=== PATIENT | male | born 1965 | race Caucasian/White ===

== ENCOUNTER 2018-01-13 13:09 | Emergency (ER) | payer MEDICARE, MEDICAID, SELFPAY ==
[2018-01-13] VITALS (41 sets, daily range): BP systolic 43–197; BP diastolic 21–154; PULSE 40–217; RESP 2–44; TEMP 36.5; O2SAT 89–100
[2018-01-13] MEDS: Atropine 1 MG/10 ML SYRINGE IVP (13:30)
[2018-01-13] MEDS: Albuterol 2.5 MG/3 ML INH SOLN VIAL UPD (13:34)
[2018-01-13] MEDS: Midazolam 2 MG/2 ML VIAL IVP ×2 (13:36→14:00)
--- NOTE | 2018-01-13 13:37 | DI.RAD_ITS ---
SYMPTOM/DIAGNOSIS: BRADYCARDIAC, HYPOTENSIVE PORTABLE AP CHEST: Allowing for suboptimal inspiratory effort, there are no gross pulmonary infiltrates. The heart is enlarged. A double bore catheter appears to end in the distal superior vena cava.
[2018-01-13] MEDS: Sodium Bicarbonate 50 MEQ/50 ML SYR IVP (13:38)
--- NOTE | 2018-01-13 13:52 | W.ED.GENAD ---
Discharge Plan Disposition Patient Disposition: LISA OCHOA ([facility]) Condition: Critical Discharge Details Chief Complaint: CVA/TIA Clinical Impression: Bradycardia, Hypotension, Hyperkalemia, Left bundle branch block, ESRD on dialysis Primary Care Provider: Unknown,Unknown ED Provider: Krystin Ludwig Home Meds and New Rx's Prescriptions: No Action atorvastatin 80 mg Tablet 80 mg PO .QHS RF: 0 ipratropium-albuterol 0.5 mg-3 mg(2.5 mg base)/3 mL Solution For Nebulization PRNRF: 0 metoprolol tartrate 100 mg Tablet 100 mg PO BID RF: 0 clonazepam 0.5 mg Tablet 0.5 mg PO BID PRNRF: 0 oxycodone 15 mg Tablet 15 mg PO QID RF: 0 levetiracetam [Keppra] 250 mg Tablet 250 mg PO BID RF: 0 furosemide [Lasix] 80 mg Tablet 80 mg PO .QHS RF: 0 pantoprazole 40 mg Tablet,Delayed Release (Dr/Ec) 40 mg PO DAILY RF: 0 calcitriol 0.5 mcg Capsule 0.5 mcg PO BID RF: 0 warfarin 2 mg Tablet 2 mg PO DAILY RF: 0 nitroglycerin 0.4 mg Tablet, Sublingual 0.4 mg Sublingual PRNRF: 0 B complex-vitamin C-folic acid 0.8 mg Tablet 1 tab PO DAILY RF: 0 albuterol sulfate [Proventil HFA] 90 mcg/actuation Hfa Aerosol Inhaler 2 puff Inhalation PRNRF: 0 diltiazem HCl 180 mg Capsule,Ext.Rel 24h Degradable 180 mg PO DAILY RF: 0 cinacalcet [Sensipar] 30 mg Tablet 30 mg PO .SUPPER RF: 0 mirtazapine 7.5 mg Tablet 7.5 mg PO .QHS RF: 0 cholecalciferol (vitamin D3) 2,000 unit Capsule 2,000 unit PO DAILY RF: 0 colchicine 0.6 mg Capsule 0.5 tab PO BID RF: 0 Discharge Data Discharge Date/Time-TO BE ENTERED AT DEPARTURE: 01/13/18 15:50 Medical Decision Making 1315 -- 52yo M w/ a h/o ESRD on dialysis, CHF, HTN who presents for vomiting, shivering, diaphoresis since this morning. Heart rate on arrival 30s. BP unobtainable. O2 sat low 90s on RA. RR 30s. Pt appears drowsy but arousable, able to answer questions, airway intact. EKG notes a rate of 37, LBBB, QRS 226, peaked T waves. Review of old ekg 10/2017 from [facility] notes Afib/flutter; LBBB appears new. Heart rate subsequently decreased to the 20s. Systolic blood pressure 50s-60s. Patient was given 2 doses of 0.5 mg atropine. Patient was then started on transcutaneous pacing. Patient was given albuterol, an amp of bicarb, calcium IV. Patient began to moan once transcutaneous pacing started and was given 2 mg of Versed. Heart rate 70s and paced. Blood pressure improved to 140s/100s. Respiratory rate 20s. [facility] called for stat transfer for cardiology but there were no beds available. Call placed to [facility] which was discussed with and patient and he would rather transfer to [facility] in [place]. Discussed with [facility] and there are no beds available there. All [facility] again and spoke with cardiology Dr. Cabello who accepts patient for transfer. Will fly by helicopter. Would like epi infusion at 5 mcg/min which can be given peripherally. Agrees with plan for Versed boluses as needed for sedation while pacing. Can consider ketamine or IV Haldol. Labs reviewed and note a white blood cell count of 14, sodium 125, potassium 9.5, bicarb 19, anion gap 17, creatinine 10.73, glucose 448, calcium 6.2. Troponin negative. ABG notes a pH of 7.35, bicarb of 18, PCO2 33, PO2 248. 10 units of insulin and 10 mg of albuterol given. Patient was given a second dose of Versed to help with sedation after he started moaning again. He appeared to be more tachypneic into the 40s. He was sat up and was less responsive and considered intubation, however he became more alert and was answering questions appropriately. This may be likely from versed and it's prolonged effects due to reduced renal clearance. Would rather hold on intubation if pt continues to protect his airway as his presentation is more metabolic rather than respiratory, and ventilator may be not able to match what he can do on his own to compensate for the acidosis. 1530 -- [facility] helicopter here. Dr. Cabello updated on patient's status and plan. Patient awake and alert and complaining of pain from pacer pads from portable monitor. HPI General Mode of arrival: wheelchair. Date/Time Provider Initiated Documentation: 01/13/18 13:19. Limitations to Documentation: altered mental status and physical limitation (weakness). Information obtained by: patient and family. HPI Narrative: Patient is a 52-year-old male who presents for vomiting, shivering and diaphoresis this morning. He has history of end-stage renal disease on dialysis Friday, and Friday. Last received dialysis as scheduled on Friday. Patient missed dialysis this morning due to the above-mentioned symptoms. He denies any chest pain or shortness of breath. is unsure of patient's medications. She states she can send a list. Past medical history: End-stage renal disease on dialysis, CHF, COPD, CVA, hypertension, SC, pancreatitis Surgical history: Fistulas right upper extremity, neck surgery Social history: Smokes tobacco, occasional alcohol, denies drugs Medications: Unknown at time of initial arrival, see list per nurse. Allergies: See list PCP: [place], also seen at [facility]. Related Data Home Medications Medication Instructions Recorded Confirmed B complex-vitamin C-folic acid 1 tab PO DAILY 01/13/18 01/13/18 albuterol sulfate [Proventil HFA] 2 puff INHALATION PRN 01/13/18 atorvastatin 80 mg PO .QHS 01/13/18 01/13/18 calcitriol 0.5 mcg PO BID 01/13/18 01/13/18 cholecalciferol (vitamin D3) 2,000 unit PO DAILY 01/13/18 01/13/18 cinacalcet [Sensipar] 30 mg PO .SUPPER 01/13/18 01/13/18 clonazepam 0.5 mg PO BID PRN 01/13/18 01/13/18 colchicine 0.5 tab PO BID 01/13/18 01/13/18 diltiazem HCl 180 mg PO DAILY 01/13/18 01/13/18 furosemide [Lasix] 80 mg PO .QHS 01/13/18 01/13/18 ipratropium-albuterol PRN 01/13/18 levetiracetam [Keppra] 250 mg PO BID 01/13/18 01/13/18 metoprolol tartrate 100 mg PO BID 01/13/18 01/13/18 mirtazapine 7.5 mg PO .QHS 01/13/18 01/13/18 nitroglycerin 0.4 mg SUBLINGUAL PRN 01/13/18 oxycodone 15 mg PO QID 01/13/18 01/13/18 pantoprazole 40 mg PO DAILY 01/13/18 01/13/18 warfarin 2 mg PO DAILY 01/13/18 01/13/18 Allergies Allergy/AdvReac Type Severity Reaction Status Date / Time clonidine [From Catapres] Allergy Intermediate Hives Unverified 01/13/18 14:22 lisinopril Allergy Intermediate Hives Unverified 01/13/18 14:22 chlorhexidine Allergy Unknown Unverified 01/13/18 14:22 alcohol skin cleanser Allergy Intermediate Uncoded 01/13/18 14:23 General Stated Complaint: CVA/TIA NELLY: 2 Review of Systems Review of Systems All systems reviewed & are unremarkable except as noted in HPI and below PFSH Social History Smoking/Tobacco Use Status: Current every day Exam Const General: cooperative, frail appearing and ill appearing Orientation: other (Drowsy but arousable) [facility] Head: normal to inspection Ears: hearing grossly normal bilaterally and external ears normal General nose exam: external nose normal Face and sinus: normal facial exam Mouth: oral mucosae normal Eyes General: appearance normal, both eyes and all related structures Eyelids: eyelids normal Pupils: PERRL EOM: EOM intact bilaterally Neck Neck: normal visual inspection Lymphatic: no lymphadenopathy noted Chest Chest: normal inspection of the chest Resp Effort & Inspection: normal respiratory effort and able to speak in complete sentences Auscultation: clear to auscultation bilaterally Cardio Rate: bradycardic Rhythm: abnormal rhythm (Wide QRS,afib, LBBB) GI Inspection: normal to inspection and distended Palpation: soft, not firm, no guarding, no hepatosplenomegaly, no masses and nontender Auscultation: normal bowel sounds Skin General skin exam: no rashes or lesions noted Neuro General: other (drowsy) Cognition: normal cognition Speech: speech normal Gait: normal gait Motor: muscle tone normal throughout Sensory Exam: no sensory deficits noted Extrem General: normal to inspection, full ROM, normal capillary refill and no edema Psych Appearance: grossly normal Mental Status: mental status grossly normal Speech and Movement: speech and movement normal Affect: normal affect Thought Process: normal Course Laboratory Tests Range/Units 01/13/18 01/13/18 01/13/18 13:30 13:30 13:30 WBC (4.4-10.8) k/cumm 14.30 H RBC (4.50-6.00) m/cumm 4.40 L Hgb (13.5-17.5) g/dL 13.0 L Hct (40.0-50.0) % 39.3 L MCV (80-95) fL 89.3 MCH (27.0-33.0) pg 29.5 MCHC (32.0-36.0) g/dL 33.1 RDW (11.8-14.1) % 17.8 H Plt Count (130-400) x1000/uL 301 MPV (8.0-11.0) fL 10.1 Immature Gran % 0.0 Neutrophils % 91.0 Lymphocytes % 5.0 Monocytes % 4.0 Eosinophils % 0.0 Basophils % 0.0 Absolute Neutrophils (1.2-6.7) k/cumm 13.01 H Absolute Lymphocytes (1.2-3.4) k/cumm 0.72 L Absolute Monocytes (0.11-0.7) k/cumm 0.57 Absolute Eosinophils (0.0-0.7) k/cumm 0.00 Absolute Basophils (0.0-0.2) k/cumm 0.00 Differential Comment Manual differential RBC Morphology Normal PT (9.3-10.8) sec 12.1 H INR (1.0-3.5) 1.2 APTT (21.0-31.4) sec 29.1 Sample Site pCO2 (34-47) mmHg pO2 (83-108) mmHg O2 Saturation (94-98) % ABG pH (7.35-7.45) ABG HCO3 (22-28) mmol/L ABG Total CO2 ABG Base Excess (-3-3) mmol/L FiO2 % Sodium (136-145) mmol/L 125 L Potassium (3.5-5.1) mmol/L 9.5 H* Chloride (98-107) mmol/L 89 L Carbon Dioxide (21.0-32.0) mmol/L 19.0 L Anion Gap (3-11) mmol/L 17.0 H BUN (7-18) mg/dL 100 H* Creatinine (0.70-1.30) mg/dL 10.73 H* Estimated GFR/1.73 m2 (mL/min/1.73m2) 5.07 Glucose (70-100) mg/dL 448 H Calcium (8.5-10.1) mg/dL 6.2 L* Magnesium (1.8-2.4) mg/dL 2.0 Total Bilirubin (0.2-1.0) mg/dL 0.5 Conjugated Bilirubin (0.00-0.20) mg/dL 0.13 AST (15-37) U/L 20 ALT (12-78) U/L 15 Alkaline Phosphatase (46-116) U/L 399 H Troponin I (0.00-0.06) ng/mL < 0.02 Total Protein (6.4-8.2) g/dL 7.8 Albumin (3.4-5.0) g/dL 3.8 Lipase (73-393) U/L 252 Range/Units 01/13/18 13:55 WBC (4.4-10.8) k/cumm RBC (4.50-6.00) m/cumm Hgb (13.5-17.5) g/dL Hct (40.0-50.0) % MCV (80-95) fL MCH (27.0-33.0) pg MCHC (32.0-36.0) g/dL RDW (11.8-14.1) % Plt Count (130-400) x1000/uL MPV (8.0-11.0) fL Immature Gran % Neutrophils % Lymphocytes % Monocytes % Eosinophils % Basophils % Absolute Neutrophils (1.2-6.7) k/cumm Absolute Lymphocytes (1.2-3.4) k/cumm Absolute Monocytes (0.11-0.7) k/cumm Absolute Eosinophils (0.0-0.7) k/cumm Absolute Basophils (0.0-0.2) k/cumm Differential Comment RBC Morphology PT (9.3-10.8) sec INR (1.0-3.5) APTT (21.0-31.4) sec Sample Site Left radial pCO2 (34-47) mmHg 33 L pO2 (83-108) mmHg 248 H O2 Saturation (94-98) % ABG pH (7.35-7.45) 7.35 ABG HCO3 (22-28) mmol/L 18 L ABG Total CO2 Not Applicable ABG Base Excess (-3-3) mmol/L FiO2 % 100 Sodium (136-145) mmol/L Potassium (3.5-5.1) mmol/L Chloride (98-107) mmol/L Carbon Dioxide (21.0-32.0) mmol/L Anion Gap (3-11) mmol/L BUN (7-18) mg/dL Creatinine (0.70-1.30) mg/dL Estimated GFR/1.73 m2 (mL/min/1.73m2) Glucose (70-100) mg/dL Calcium (8.5-10.1) mg/dL Magnesium (1.8-2.4) mg/dL Total Bilirubin (0.2-1.0) mg/dL Conjugated Bilirubin (0.00-0.20) mg/dL AST (15-37) U/L ALT (12-78) U/L Alkaline Phosphatase (46-116) U/L Troponin I (0.00-0.06) ng/mL Total Protein (6.4-8.2) g/dL Albumin (3.4-5.0) g/dL Lipase (73-393) U/L Vital Signs Temperature 97.7 F 01/13/18 13:19 Pulse 79 01/13/18 13:19 Respiratory Rate 32 H 01/13/18 13:19 Blood Pressure 97/72 L 01/13/18 13:19 Pulse Oximetry 100 01/13/18 13:19 Temperature 97.7 F 01/13/18 13:19 Temperature Source Skin 01/13/18 13:19 Pulse 79 01/13/18 13:19 Respiratory Rate 32 H 01/13/18 13:19 Blood Pressure 97/72 L 01/13/18 13:19 Blood Pressure Position Supine 01/13/18 13:19 Pulse Oximetry 100 01/13/18 13:19 Oxygen Delivery Method Non-Rebreather 01/13/18 13:19 Oxygen Flow Rate 15 01/13/18 13:19 Critical Care Time Total Critical Care Time: 150
[2018-01-13] MEDS: Normal Saline 250 ML IV ×2 (14:00→15:00)
[2018-01-13 14:02] LABS: Absolute Neutrophil Count 13.01 k/cumm (1.2-6.7); HCT 39.3 % (40.0-50.0); Mean Corp. HGB Concentration 33.1 g/dL (32.0-36.0); Mean Corpuscular Hemoglobin 29.5 pg (27.0-33.0); Mean Corpuscular Volume 89.3 fL (80-95); Mean Platelet Volume 10.1 fL (8.0-11.0); Platelet Count 301 x1000/uL (130-400); RBC Distribution Width 17.8 % (11.8-14.1)
--- NOTE | 2018-01-13 14:02 | ED.GENADUL_ITS ---
Discharge Plan Disposition Patient Disposition: LISA OCHOA ([facility]) Condition: Critical Discharge Details Chief Complaint: CVA/TIA Clinical Impression: Bradycardia, Hypotension, Hyperkalemia, Left bundle branch block, ESRD on dialysis Primary Care Provider: Unknown,Unknown ED Provider: Krystin Ludwig Home Meds and New Rx's Prescriptions: No Action atorvastatin 80 mg Tablet 80 mg PO .QHS RF: 0 ipratropium-albuterol 0.5 mg-3 mg(2.5 mg base)/3 mL Solution For Nebulization PRNRF: 0 metoprolol tartrate 100 mg Tablet 100 mg PO BID RF: 0 clonazepam 0.5 mg Tablet 0.5 mg PO BID PRNRF: 0 oxycodone 15 mg Tablet 15 mg PO QID RF: 0 levetiracetam [Keppra] 250 mg Tablet 250 mg PO BID RF: 0 furosemide [Lasix] 80 mg Tablet 80 mg PO .QHS RF: 0 pantoprazole 40 mg Tablet,Delayed Release (Dr/Ec) 40 mg PO DAILY RF: 0 calcitriol 0.5 mcg Capsule 0.5 mcg PO BID RF: 0 warfarin 2 mg Tablet 2 mg PO DAILY RF: 0 nitroglycerin 0.4 mg Tablet, Sublingual 0.4 mg Sublingual PRNRF: 0 B complex-vitamin C-folic acid 0.8 mg Tablet 1 tab PO DAILY RF: 0 albuterol sulfate [Proventil HFA] 90 mcg/actuation Hfa Aerosol Inhaler 2 puff Inhalation PRNRF: 0 diltiazem HCl 180 mg Capsule,Ext.Rel 24h Degradable 180 mg PO DAILY RF: 0 cinacalcet [Sensipar] 30 mg Tablet 30 mg PO .SUPPER RF: 0 mirtazapine 7.5 mg Tablet 7.5 mg PO .QHS RF: 0 cholecalciferol (vitamin D3) 2,000 unit Capsule 2,000 unit PO DAILY RF: 0 colchicine 0.6 mg Capsule 0.5 tab PO BID RF: 0 Discharge Data Discharge Date/Time-TO BE ENTERED AT DEPARTURE: 01/13/18 15:50 Medical Decision Making 1315 -- 52yo M w/ a h/o ESRD on dialysis, CHF, HTN who presents for vomiting, shivering, diaphoresis since this morning. Heart rate on arrival 30s. BP unobtainable. O2 sat low 90s on RA. RR 30s. Pt appears drowsy but arousable, able to answer questions, airway intact. EKG notes a rate of 37, LBBB, QRS 226, peaked T waves. Review of old ekg 10/2017 from [facility] notes Afib/flutter; LBBB appears new. Heart rate subsequently decreased to the 20s. Systolic blood pressure 50s-60s. Patient was given 2 doses of 0.5 mg atropine. Patient was then started on transcutaneous pacing. Patient was given albuterol, an amp of bicarb, calcium IV. Patient began to moan once transcutaneous pacing started and was given 2 mg of Versed. Heart rate 70s and paced. Blood pressure improved to 140s/100s. Respiratory rate 20s. [facility] called for stat transfer for cardiology but there were no beds available. Call placed to [facility] which was discussed with and patient and he would rather transfer to [facility] in [place]. Discussed with [facility] and there are no beds available there. All [facility] again and spoke with cardiology Dr. Cabello who accepts patient for transfer. Will fly by helicopter. Would like epi infusion at 5 mcg/min which can be given peripherally. Agrees with plan for Versed boluses as needed for sedation while pacing. Can consider ketamine or IV Haldol. Labs reviewed and note a white blood cell count of 14, sodium 125, potassium 9.5 , bicarb 19, anion gap 17, creatinine 10.73, glucose 448, calcium 6.2. Troponin negative. ABG notes a pH of 7.35, bicarb of 18, PCO2 33, PO2 248. 10 units of insulin and 10 mg of albuterol given. Patient was given a second dose of Versed to help with sedation after he started moaning again. He appeared to be more tachypneic into the 40s. He was sat up and was less responsive and considered intubation, however he became more alert and was answering questions appropriately. This may be likely from versed and it's prolonged effects due to reduced renal clearance. Would rather hold on intubation if pt continues to protect his airway as his presentation is more metabolic rather than respiratory, and ventilator may be not able to match what he can do on his own to compensate for the acidosis. 1530 -- [facility] helicopter here. Dr. Cabello updated on patient's status and plan. Patient awake and alert and complaining of pain from pacer pads from portable monitor. HPI General Mode of arrival: wheelchair . Date/Time Provider Initiated Documentation: 01/13/18 13:19 . Limitations to Documentation: altered mental status and physical limitation ( weakness) . Information obtained by: patient and family . HPI Narrative: Patient is a 52-year-old male who presents for vomiting, shivering and diaphoresis this morning. He has history of end-stage renal disease on dialysis Friday, and Friday. Last received dialysis as scheduled on Friday. Patient missed dialysis this morning due to the above- mentioned symptoms. He denies any chest pain or shortness of breath. is unsure of patient's medications. She states she can send a list. Past medical history: End-stage renal disease on dialysis, CHF, COPD, CVA, hypertension, [place], pancreatitis Surgical history: Fistulas right upper extremity, neck surgery Social history: Smokes tobacco, occasional alcohol, denies drugs Medications: Unknown at time of initial arrival, see list per nurse. Allergies: See list PCP: [place], also seen at [facility]. Related Data Home Medications Medication Instructions Recorded Confirmed B complex-vitamin C-folic acid 1 tab PO DAILY 01/13/18 01/13/18 albuterol sulfate [Proventil HFA] 2 puff INHALATION PRN 01/13/18 atorvastatin 80 mg PO .QHS 01/13/18 01/13/18 calcitriol 0.5 mcg PO BID 01/13/18 01/13/18 cholecalciferol (vitamin D3) 2,000 unit PO DAILY 01/13/18 01/13/18 cinacalcet [Sensipar] 30 mg PO .SUPPER 01/13/18 01/13/18 clonazepam 0.5 mg PO BID PRN 01/13/18 01/13/18 colchicine 0.5 tab PO BID 01/13/18 01/13/18 diltiazem HCl 180 mg PO DAILY 01/13/18 01/13/18 furosemide [Lasix] 80 mg PO .QHS 01/13/18 01/13/18 ipratropium-albuterol PRN 01/13/18 levetiracetam [Keppra] 250 mg PO BID 01/13/18 01/13/18 metoprolol tartrate 100 mg PO BID 01/13/18 01/13/18 mirtazapine 7.5 mg PO .QHS 01/13/18 01/13/18 nitroglycerin 0.4 mg SUBLINGUAL PRN 01/13/18 oxycodone 15 mg PO QID 01/13/18 01/13/18 pantoprazole 40 mg PO DAILY 01/13/18 01/13/18 warfarin 2 mg PO DAILY 01/13/18 01/13/18 Allergies Allergy/AdvReac Type Severity Reaction Status Date / Time clonidine [From Catapres] Allergy Intermediate Hives Unverified 01/13/18 14:22 lisinopril Allergy Intermediate Hives Unverified 01/13/18 14:22 chlorhexidine Allergy Unknown Unverified 01/13/18 14:22 alcohol skin cleanser Allergy Intermediate Uncoded 01/13/18 14:23 General Stated Complaint: CVA/TIA NELLY: 2 Review of Systems Review of Systems All systems reviewed & are unremarkable except as noted in HPI and below PFSH Social History Smoking/Tobacco Use Status: Current every day Exam Const General: cooperative, frail appearing and ill appearing Orientation: other (Drowsy but arousable) [facility] Head: normal to inspection Ears: hearing grossly normal bilaterally and external ears normal General nose exam: external nose normal Face and sinus: normal facial exam Mouth: oral mucosae normal Eyes General: appearance normal, both eyes and all related structures Eyelids: eyelids normal Pupils: PERRL EOM: EOM intact bilaterally Neck Neck: normal visual inspection Lymphatic: no lymphadenopathy noted Chest Chest: normal inspection of the chest Resp Effort & Inspection: normal respiratory effort and able to speak in complete sentences Auscultation: clear to auscultation bilaterally Cardio Rate: bradycardic Rhythm: abnormal rhythm (Wide QRS,afib, LBBB) GI Inspection: normal to inspection and distended Palpation: soft, not firm, no guarding, no hepatosplenomegaly, no masses and nontender Auscultation: normal bowel sounds Skin General skin exam: no rashes or lesions noted Neuro General: other (drowsy) Cognition: normal cognition Speech: speech normal Gait: normal gait Motor: muscle tone normal throughout Sensory Exam: no sensory deficits noted Extrem General: normal to inspection, full ROM, normal capillary refill and no edema Psych Appearance: grossly normal Mental Status: mental status grossly normal Speech and Movement: speech and movement normal Affect: normal affect Thought Process: normal Course Laboratory Tests Range/Units 01/13/18 01/13/18 01/13/18 13:30 13:30 13:30 WBC (4.4-10.8) k/cumm 14.30 H RBC (4.50-6.00) m/cumm 4.40 L Hgb (13.5-17.5) g/dL 13.0 L Hct (40.0-50.0) % 39.3 L MCV (80-95) fL 89.3 MCH (27.0-33.0) pg 29.5 MCHC (32.0-36.0) g/dL 33.1 RDW (11.8-14.1) % 17.8 H Plt Count (130-400) x1000/uL 301 MPV (8.0-11.0) fL 10.1 Immature Gran % 0.0 Neutrophils % 91.0 Lymphocytes % 5.0 Monocytes % 4.0 Eosinophils % 0.0 Basophils % 0.0 Absolute Neutrophils (1.2-6.7) k/cumm 13.01 H Absolute Lymphocytes (1.2-3.4) k/cumm 0.72 L Absolute Monocytes (0.11-0.7) k/cumm 0.57 Absolute Eosinophils (0.0-0.7) k/cumm 0.00 Absolute Basophils (0.0-0.2) k/cumm 0.00 Differential Comment Manual differential RBC Morphology Normal PT (9.3-10.8) sec 12.1 H INR (1.0-3.5) 1.2 APTT (21.0-31.4) sec 29.1 Sample Site pCO2 (34-47) mmHg pO2 (83-108) mmHg O2 Saturation (94-98) % ABG pH (7.35-7.45) ABG HCO3 (22-28) mmol/L ABG Total CO2 ABG Base Excess (-3-3) mmol/L FiO2 % Sodium (136-145) mmol/L 125 L Potassium (3.5-5.1) mmol/L 9.5 H* Chloride (98-107) mmol/L 89 L Carbon Dioxide (21.0-32.0) mmol/L 19.0 L Anion Gap (3-11) mmol/L 17.0 H BUN (7-18) mg/dL 100 H* Creatinine (0.70-1.30) mg/dL 10.73 H* Estimated GFR/1.73 m2 (mL/min/1.73m2) 5.07 Glucose (70-100) mg/dL 448 H Calcium (8.5-10.1) mg/dL 6.2 L* Magnesium (1.8-2.4) mg/dL 2.0 Total Bilirubin (0.2-1.0) mg/dL 0.5 Conjugated Bilirubin (0.00-0.20) mg/dL 0.13 AST (15-37) U/L 20 ALT (12-78) U/L 15 Alkaline Phosphatase (46-116) U/L 399 H Troponin I (0.00-0.06) ng/mL < 0.02 Total Protein (6.4-8.2) g/dL 7.8 Albumin (3.4-5.0) g/dL 3.8 Lipase (73-393) U/L 252 Range/Units 01/13/18 13:55 WBC (4.4-10.8) k/cumm RBC (4.50-6.00) m/cumm Hgb (13.5-17.5) g/dL Hct (40.0-50.0) % MCV (80-95) fL MCH (27.0-33.0) pg MCHC (32.0-36.0) g/dL RDW (11.8-14.1) % Plt Count (130-400) x1000/uL MPV (8.0-11.0) fL Immature Gran % Neutrophils % Lymphocytes % Monocytes % Eosinophils % Basophils % Absolute Neutrophils (1.2-6.7) k/cumm Absolute Lymphocytes (1.2-3.4) k/cumm Absolute Monocytes (0.11-0.7) k/cumm Absolute Eosinophils (0.0-0.7) k/cumm Absolute Basophils (0.0-0.2) k/cumm Differential Comment RBC Morphology PT (9.3-10.8) sec INR (1.0-3.5) APTT (21.0-31.4) sec Sample Site Left radial pCO2 (34-47) mmHg 33 L pO2 (83-108) mmHg 248 H O2 Saturation (94-98) % ABG pH (7.35-7.45) 7.35 ABG HCO3 (22-28) mmol/L 18 L ABG Total CO2 Not Applicable ABG Base Excess (-3-3) mmol/L FiO2 % 100 Sodium (136-145) mmol/L Potassium (3.5-5.1) mmol/L Chloride (98-107) mmol/L Carbon Dioxide (21.0-32.0) mmol/L Anion Gap (3-11) mmol/L BUN (7-18) mg/dL Creatinine (0.70-1.30) mg/dL Estimated GFR/1.73 m2 (mL/min/1.73m2) Glucose (70-100) mg/dL Calcium (8.5-10.1) mg/dL Magnesium (1.8-2.4) mg/dL Total Bilirubin (0.2-1.0) mg/dL Conjugated Bilirubin (0.00-0.20) mg/dL AST (15-37) U/L ALT (12-78) U/L Alkaline Phosphatase (46-116) U/L Troponin I (0.00-0.06) ng/mL Total Protein (6.4-8.2) g/dL Albumin (3.4-5.0) g/dL Lipase (73-393) U/L Vital Signs Temperature 97.7 F 01/13/18 13:19 Pulse 79 01/13/18 13:19 Respiratory Rate 32 H 01/13/18 13:19 Blood Pressure 97/72 L 01/13/18 13:19 Pulse Oximetry 100 01/13/18 13:19 Temperature 97.7 F 01/13/18 13:19 Temperature Source Skin 01/13/18 13:19 Pulse 79 01/13/18 13:19 Respiratory Rate 32 H 01/13/18 13:19 Blood Pressure 97/72 L 01/13/18 13:19 Blood Pressure Position Supine 01/13/18 13:19 Pulse Oximetry 100 01/13/18 13:19 Oxygen Delivery Method Non-Rebreather 01/13/18 13:19 Oxygen Flow Rate 15 01/13/18 13:19 Critical Care Time Total Critical Care Time: 150
[2018-01-13 14:03] LABS: Absolute Lymphocyte Count 0.72 k/cumm (1.2-3.4); Absolute Monocyte Count 0.57 k/cumm (0.11-0.7); Diff Comment Manual Differential; RBC Morphology Normal
[2018-01-13 14:07] LABS: INR 1.2 (1.0-3.5); PTT Activated 29.1 sec (21.0-31.4); Prothrombin Time 12.1 sec (9.3-10.8)
[2018-01-13 14:09] LABS: HCO3 18 mmol/L (22-28); pCO2 33 mmHg (34-47); pH 7.35 (7.35-7.45); pO2 248 mmHg (83-108)
[2018-01-13 14:09] LABS: ALT 15 U/L (12-78); AST 20 U/L (15-37); Albumin 3.8 g/dL (3.4-5.0); Alkaline Phosphatase 399 U/L (46-116); Bilirubin, Direct 0.13 mg/dL (0.00-0.20); Bilirubin, Total 0.5 mg/dL (0.2-1.0); Chloride 89 mmol/L (98-107); Estimated GFR 5.07 (mL/min/1.73m2); Glucose 448 mg/dL (70-100); Lipase 252 U/L (73-393); Sodium 125 mmol/L (136-145); Total Protein 7.8 g/dL (6.4-8.2)
[2018-01-13 14:11] LABS: FIO2 100 %; Site Left Radial
[2018-01-13] MEDS: Calcium Chloride 1000 MG/10 ML SYR IVP (14:16)
[2018-01-13 14:20] LABS: BUN 100 mg/dL (7-18); Calcium 6.2 mg/dL (8.5-10.1); Troponin I < 0.02 ng/mL (0.00-0.06)
[2018-01-13 14:21] LABS: CREATININE 10.73 mg/dL (0.70-1.30); Potassium 9.5 mmol/L (3.5-5.1)
[2018-01-13] MEDS: Insulin REGULAR-Human 100 UNITS/ML UNIT 10 UNITS IV (14:59)
[2018-01-13] MEDS: Albuterol 2.5 MG/3 ML INH SOLN VIAL 10 MG UPD (15:11)
[2018-01-13] MEDS: Sodium Chloride 0.9% for Inhalation 15 ML VIAL (15:12)
--- NOTE | 2018-01-13 16:00 | NUR.NOTE ---
Nursing Note: upon arrival patient was found in and out of responsiveness in the car. He was very weak and unable to stand. This lead technical writer and [place] provider assisted patient into wheelchair. Patient was unable to help and or move his legs at that time. Patient was brought into room 7 initally and again was assisted onto the bed. Patient was connected to the security monitor and BP cuff. His instal heart rate was found to be in the 30's. Patient was quickly moved into room 1 where he was connected to the Z[facility] and pacing began. See MAR for medications given during his stay. Patient was alert at this time but confused. Patient stayed paced at a rate of 70 with mA of 50 until [facility]'s helicopter transport team arrived. This lead technical writer is unaware of the setting they placed him on. He did leave the facility being paced as well.
== END 2018-01-13 15:50 | disposition short-term general hospital (02) ==
PROVIDERS: Emergency Provider Physician Assistant
DX: R00.1 Bradycardia, unspecified (principal); I95.9 Hypotension, unspecified; E87.6 Hypokalemia; I44.7 Left bundle-branch block, unspecified; Z99.2 Dependence on renal dialysis; I12.0 Hypertensive chronic kidney disease with stage 5 chronic kidney disease or end stage renal disease; N18.6 End stage renal disease; J44.9 Chronic obstructive pulmonary disease, unspecified
CPT/HCPCS: 36415; 36416; 80053; 80076; 82805; 82962; 83690; 92953; 93005; 94640; 94644; 96361; 96365; 96375; 99291; 99292; 71045; 83735; 84484; 85025; 85610; 85730; 93010; J2250; J7613

== ENCOUNTER 2018-04-15 11:01 | Outpatient (CLI) | payer MEDICARE, MEDICAID, SELFPAY ==
--- NOTE | 2018-04-15 10:55 | DI.RAD_ITS ---
SYMPTOMS/DIAGNOSIS: PAIN RIGHT KNEE: There are no prior comparison exams. The bones appear osteopenic. Vascular calcifications are seen. The joint spaces are well maintained. No joint effusion is seen. IMPRESSION: No acute abnormality.
== END 2018-04-15 11:21 ==
PROVIDERS: Visit Provider Orthopaedic Surgery
DX: M25.561 Pain in right knee (principal); M85.88 Other specified disorders of bone density and structure, other site
CPT/HCPCS: 73562; 99211; 99214

== ENCOUNTER → 2018-07-01 10:22 | Outpatient (BNVA) | payer MEDICARE, MEDICAID, SELFPAY | PROVIDERS: Visit Provider Orthopaedic Surgery | DX: M25.561 Pain in right knee (principal); G89.29 Other chronic pain | CPT/HCPCS: 99212 ==